=== PATIENT | male | born 1985 | race Caucasian/White ===

== ENCOUNTER 2023-09-29 15:52 | Outpatient (CLI) | payer BC ==
[2023-09-29 16:27] LABS: #Eosinphils 0.1 10x3/uL (0.0-0.5); #Monocytes 0.7 10x3/uL (0.0-1.1); #Neutrophils 3.6 10x3/uL (1.5-8.4); %Basophils 0.5 % (0.0-2.0); %Eosinophils 1.1 % (0.0-6.0); %Lymphocytes 34.5 % (18.0-47.0); %Monocytes 9.9 % (0.0-10.0); %Neutrophils 53.7 % (40.0-75.0); Mean Corpuscular HGB CONC 34.1 g/dL (32.0-36.0); Mean Corpuscular Hemoglobin 29.4 pg (27.0-33.0); Mean Platelet Volume 10.2 fl (7.4-10.4); Platelet Count 242 10x3/uL (150-450); RBC Distribution Width 12.7 % (11.5-14.5); Red Blood Cell (RBC) Count 4.77 10x6/uL (4.32-5.72); White Blood Cell (WBC) Count 6.7 10x3/uL (3.5-10.5)
[2023-09-29 16:50] LABS: Anion Gap 12 mmol/L (10-20); BUN (Urea Nitrogen) 13 mg/dL (8.9-20.6); Calc. Creatinine Clearance 0 mL/min (70-130); Calcium 9.5 mg/dL (7.8-10.44); Carbon Dioxide 24 mmol/L (22-29); Chloride 107 mmol/L (98-107); Estimated GFR 112; Glucose 115 mg/dL (70-105); Sodium 139 mmol/L (136-145)
== END 2023-09-29 15:53 | disposition home or self-care (01) ==
LOC: LABBT 15:52
PROVIDERS: ATTEND Orthopaedic Surgery
DX: Z01.812 Encounter for preprocedural laboratory examination (principal); M75.102 Unspecified rotator cuff tear or rupture of left shoulder, not specified as traumatic
CPT/HCPCS: 80048; 85025

== ENCOUNTER 2023-10-06 06:50 | Day surgery (SDC) | payer BC ==
[2023-09-29 16:07] VITALS: BMI 44.9
[2023-10-06] MEDS ORDERED: Midazolam HCl 2 mg/2 ml Vial ONE (07:56)
[2023-10-06] MEDS ORDERED: fentaNYL 50 mcg/mL 1 mL Vial ONE (07:56)
[2023-10-06] MEDS ORDERED: Ropivacaine 0.2% HCl/PF 20 ML ONE (07:57)
[2023-10-06] MEDS ORDERED: Ropivacaine 0.5% HCl/PF (150 MG/30 ML VIAL) ONE (07:57)
[2023-10-06] MEDS ORDERED: fentaNYL 50 mcg/mL 1 mL Vial SLOW IVP PRN (09:23)
[2023-10-06] MEDS ORDERED: Ropivacaine 0.2% 550 ML 550 ML NERVE BLCK SCH (09:30)
[2023-10-06] MEDS ORDERED: Zolpidem Tartrate 5 MG TAB PO PRN (09:30)
[2023-10-06] MEDS ORDERED: traMADol HCl 50 MG TAB PO PRN ×2 (09:30)
[2023-10-06] MEDS ORDERED: Ondansetron PF 4 MG/2 ML Vial IVP PRN (09:30)
[2023-10-06] MEDS ORDERED: Promethazine HCl 25 MG/ML VIAL IM PRN (09:30)
[2023-10-06] MEDS ORDERED: HYDROcodone/Acetaminophen 10/325 mg Tablet PO PRN ×2 (09:30)
[2023-10-06] MEDS ORDERED: Bupivacaine 0.25% HCL 30 ML VIAL ONE (10:25)
[2023-10-06] MEDS ORDERED: EPINEPHrine 1 MG/ML VIAL ONE (10:25)
[2023-10-06] MEDS ORDERED: CEFAZOLIN 2 GM VIAL ONE (10:29)
[2023-10-06] MEDS ORDERED: Sodium Chloride 0.9% 100 ML ONE (10:29)
[2023-10-06] MEDS ORDERED: Ondansetron PF 4 MG/2 ML Vial ONE (10:30)
[2023-10-06] MEDS ORDERED: Dexamethasone 20 MG/5 ML VIAL ONE (10:30)
[2023-10-06] MEDS ORDERED: Lidocaine 2% PF 5 ML VIAL ONE (10:30)
[2023-10-06] MEDS ORDERED: Rocuronium Bromide 10 MG/ML (10ML VIAL) ONE ×2 (10:30→11:24)
[2023-10-06] MEDS ORDERED: PROPOFOL 20 ML ONE (10:31)
[2023-10-06] MEDS ORDERED: fentaNYL PF 100 MCG/2 ML SYRINGE ONE (10:31)
[2023-10-06] MEDS ORDERED: Phenylephrine 10 MG/ML VIAL ONE (10:33)
[2023-10-06] MEDS ORDERED: CEFAZOLIN 1 GM VIAL ONE (11:06)
[2023-10-06] MEDS ORDERED: SUGAMMADEX SODIUM 200 MG/2 ML VIAL ONE (11:25)
[2023-10-06] MEDS ORDERED: Ketorolac Tromethamine 30 MG (1 mL) VIAL IVP SCH (12:00)
== END 2023-10-06 14:16 | disposition home or self-care (01) ==
LOC: SDC 06:50
PROVIDERS: ATTEND Orthopaedic Surgery
PROC: 0LQ14ZZ Repair Right Shoulder Tendon, Percutaneous Endoscopic Approach (ICD-10-PCS; principal; 2023-10-06)
DX: M75.111 Incomplete rotator cuff tear or rupture of right shoulder, not specified as traumatic (principal); M19.011 Primary osteoarthritis, right shoulder; I10 Essential (primary) hypertension; E66.9 Obesity, unspecified; Z68.41 Body mass index [BMI] 40.0-44.9, adult; Z98.84 Bariatric surgery status; Z79.899 Other long term (current) drug therapy
CPT/HCPCS: A4306; J0171; J0665; J0690; J1100; J2001; J2250; J2371; J2405; J2704; J2795; J3010; J3490